=== PATIENT | female | born 1965 | race Caucasian/White ===

== ENCOUNTER 2020-03-01 07:23 | Outpatient (REF) | payer OTHER, SELFPAY | END 2020-03-01 07:24 | disposition home or self-care (01) | LOC: HO.LAB 07:23 | PROVIDERS: PCP Registered Nurse; Visit Provider Internal Medicine | DX: Z20.828 Contact with and (suspected) exposure to other viral communicable diseases (principal) | CPT/HCPCS: C9803; U0003 ==